=== PATIENT | female | born 1945 | race Caucasian/White ===

== ENCOUNTER 2016-09-18 21:03 | Inpatient (IN) ==
[2016-09-18 21:32] LABS: Bilirubin,Urine Negative (Negative); Blood,Urine Small (Negative); Clarity,Urine Cloudy (Clear); Color,Urine Yellow (Yellow); Glucose,Urine (UA) Normal (Normal); Ketones,Urine Trace mg/dL (Negative); Leukocyte Esterase,Urine Moderate (Negative); Nitrite,Urine Positive (Negative); PH,Urine 5.5 pH Units (5.0-8.0); Protein,Urine 100 mg/dL (Neg-Trace); Urobilinogen,Urine Normal (Normal)
[2016-09-18 21:39] LABS: Bacteria,Urine Many per hpf (None-Few); Squamous Epithelial Cell,Urine Moderate per lpf (None-Few)
--- NOTE | 2016-09-18 21:39 | Emergency Department Note ---
Disposition Clinical Impression: Weakness UTI (urinary tract infection) Qualifiers: Urinary tract infection type: acute cystitis Hematuria presence: without hematuria Qualified Code(s): N30.00 - Acute cystitis without hematuria Altered mental status Qualifiers: Altered mental status type: transient alteration of awareness Qualified Code(s) : R40.4 - Transient alteration of awareness Abdominal pain Qualifiers: Abdominal location: generalized Qualified Code(s): R10.84 - Generalized abdominal pain Fever Qualifiers: Fever type: unspecified Qualified Code(s): R50.9 - Fever, unspecified Anemia Qualifiers: Anemia type: unspecified type Qualified Code(s): D64.9 - Anemia, unspecified Disposition: Admitted As Inpatient Condition: Fair Referrals: NO,PCP [Non-Partnered Physician] - Forms: Work/School Release, ED Satisfaction Letter Abdominal Pain HPI - General Chief Complaint: ED Abdominal Pain Stated Complaint: ABD PAIN Time Seen by Provider: 09/18/16 21:33 Source: patient, family Mode of arrival: private vehicle Limitations: no limitations Nursing Notes Reviewed: Yes Vital Signs Reviewed: Yes - History of Present Illness HPI Narrative: Patient has come to [place] to visit family from [facility]. [place] [facility] but she started complaining of more abdominal pain after 4 this afternoon and seemed like she was a little confused. Pain is described as diffuse and she cannot really describe it. She relates she has had a stomachache intermittently for 2-3 weeks. She thinks some of this could be related to breaking off her insulin needles in her lower abdomen. She does report some nausea without vomiting. She denies diarrhea, constipation or urinary trouble. She denies any weakness but did feel dizzy tonight. She denies fevers but felt warm and had some chills. She denies diaphoresis. She denies that she has had any ill exposures or food borne illness concerns. She denies any recent antibiotics. She has had a chronic backache which she is having at this time. She relates she has had 4 back surgeries with 3 of them in the last year. She also has had 2 years of recurrent anemia with recurrent transfusions. Her had stated that she is having some similar complaints and confusion when her hemoglobin has been low. No cause has been found for her anemia upon multiple testing by her family doctor. He said that at one point this evening the patient was talking to her who was not there at the time. Patient is now able to express that she was doing that and is laughing about it. Pt Subjective Complaint: abdominal pain Onset (ago): week(s) (3) Consistency: intermittent Location: diffuse Pain Severity: moderate Pain Scale: 7 Quality: cannot describe Radiation: none Migration to: no migration Improves with: nothing Worsens with: nothing Context: history of similar episodes Associated symptoms: Reports: nausea, chills. Denies: vomiting, diarrhea, fever , constipation, dysuria, hematemesis, hematochezia, melena, hematuria, anorexia , syncope Treatments prior to arrival: none - Related Data Home Medications Medication Instructions Recorded Confirmed Metformin [Glucophage] 1,000 mg PO BIDWM 09/18/16 09/18/16 Allergies Allergy/AdvReac Type Severity Reaction Status Date / Time acetaminophen [From Percocet] AdvReac Agitated Verified 09/18/16 21:05 Oxycodone [From Percocet] AdvReac Agitated Verified 09/18/16 21:05 All systems ED: reviewed and negative except as stated. Abdominal Pain PMH - Past Medical History Medical history: Reports: arthritis, COPD, coronary artery disease, diabetes, GERD, hyperlipidemia, hypertension, kidney stones, peripheral artery disease, other (Recurrent anemia and transfusions) Female Surgical History: Reports: cholecystectomy Psychiatric history: Reports: no psych history - Social History Smoking status: Former smoker Alcohol use: Reports: none Drug use: Reports: none Physical Exam - General Limitations: no limitations General appearance: alert, in no apparent distress - Head Head exam: atraumatic, normocephalic, normal inspection - Eye Eye exam: Present: normal appearance, PERRL, EOMI. Absent: scleral icterus, conjunctival injection - ENT ENT exam: normal exam, normal oropharynx, mucous membranes moist - Neck Neck exam: Present: normal inspection, full ROM, trachea midline - Chest Chest inspection: Present: normal inspection, symmetric chest wall rise - Respiratory Respiratory exam: Present: normal lung sounds bilaterally. Absent: respiratory distress, wheezes, prolonged expiratory phase - Cardiovascular Cardiovascular exam: Present: regular rate, normal rhythm, tachycardia, normal heart sounds - Abdominal Exam Abdominal exam: Present: soft, tenderness (Mild diffuse in the midabdomen.), normal bowel sounds, other (No erythema or bruising to the abdominal wall.). Absent: distention, guarding, rebound, rigidity, psoas sign, obturator sign, Curry's sign, tenderness at McBurney's Point - Extremities Exam Extremities exam: Present: normal inspection, full ROM, normal capillary refill. Absent: tenderness, pedal edema - Expanded Lower Extremity Exam Neurovascular/Tendon exam: Present: normal capillary refill. Absent: motor deficit, sensory deficit, tendon deficit Gait: not tested/not observed - Back Exam Back exam: Present: normal inspection, full ROM. Absent: tenderness, CVA tenderness (R), CVA tenderness (L) - Neurological Exam Neurological exam: Present: alert, oriented X3, normal gait. Absent: motor sensory deficit - Psychiatric Psychiatric exam: Present: normal affect, normal mood - Skin Skin exam: Present: warm, dry, intact, normal color. Absent: diaphoresis, pallor Course Course Narrative: 2218: Has been discussed with the patient's, family and Dr. Rivera. She is coordinated continue with inpatient hydration, transfusion of packed red cells, IV antibiotics and clinical observation of her course. At this time she is tachycardic, febrile, weak, dizzy and not a candidate for discharge. Vital Signs Temperature 98.8 F 09/18/16 21:10 Pulse Rate 111 09/18/16 21:10 Respiratory Rate 24 09/18/16 21:10 Blood Pressure 167/68 09/18/16 21:10 O2 Sat by Pulse Oximetry 93 09/18/16 21:10 Temperature 101 F H 09/18/16 22:34 Pulse Rate 106 09/18/16 22:34 Respiratory Rate 16 09/18/16 22:34 Blood Pressure 165/64 09/18/16 22:34 O2 Sat by Pulse Oximetry 93 09/18/16 22:34 Oxygen Delivery Oxygen Delivery Room Air Abdominal Pain - Differential Diagnosis Differential Diagnosis: Likely: abdominal pain non-specific, constipation, diverticulitis, pancreatitis, other (Urinary tract infection) - Lab Data Lab results reviewed: Yes I reviewed the patient's lab results. Result diagrams: 09/18/16 22:00 09/18/16 22:00 Lab Results 09/18/16 09/18/16 09/18/16 Range/Units 21:28 22:00 22:00 WBC 5.0 (4.3-11.1) K/mcL RBC 2.47 L (3.82-4.97) M/mcL Hgb 7.0 L (11.5-15.4) g/dL Hct 22.6 L (35.3-44.9) % MCV 91.5 (83.0-100.0) fL MCH 28.3 (28.0-33.3) pg MCHC 31.0 L (31.6-35.5) g/dL RDW 16.8 H (11.5-14.5) % Plt Count 99 L (140-400) K/mcL MPV 10.8 (9.4-12.4) fL Immature Gran % 0.4 (0-4) % Seg Neutrophils % 83.0 % Lymphocytes % 8.7 % Monocytes % 7.5 % Eosinophils % 0.2 % Basophils % 0.2 % Neutrophils # 4.1 (1.6-8.9) K/mcL Lymphocytes # 0.4 L (0.6-4.6) K/mcL Monocytes # 0.4 (0.0-1.3) K/mcL Eosinophils # 0.0 (0.0-0.6) K/mcL Basophils # 0.0 (0.0-0.2) K/mcL Sodium 137 (136-145) mEq/L Potassium 4.1 (3.5-4.5) mEq/L Chloride 102 (98-109) mEq/L Carbon Dioxide 19 (19-29) mEq/L BUN 14 (7-20) mg/dL Creatinine 1.21 H (0.57-1.11) mg/dL Est GFR ( Amer) 53 L (> 60) Est GFR (Non-Af Amer) 44 L (> 60) BUN/Creatinine Ratio 12 (6-26) Glucose 236 H (70-99) mg/dL Calculated Osmolality 292 (280-300) Calcium 9.0 (8.6-10.8) mg/dL Urine Color Yellow (Yellow) Urine Clarity Cloudy A (Clear) Urine pH 5.5 (5.0-8.0) pH Units Ur Specific Le[place] 1.020 (1.010-1.025) Urine Protein 100 H (Neg-Trace) mg/dL Urine Glucose (UA) Normal (Normal) mg/dL Urine Ketones Trace H (Negative) mg/dL Urine Blood Small H (Negative) Urine Nitrite Positive A (Negative) Urine Bilirubin Negative (Negative) Urine Urobilinogen Normal (Normal) mg/dL Ur Leukocyte Esterase Moderate H (Negative) Urine Microscopic RBC 3-5 H (0-3) per hpf Urine Microscopic WBC TNTC H (0-3) per hpf Ur Squamous Epith Cells Moderate H (None-Few) per lpf Urine Bacteria Many H (None-Few) per hpf Urine Mucus Few (Few) Ur Culture Indicated? YES A (NO) - Radiology Data Radiology results reviewed: Yes I reviewed the patient's radiology results. Impressions Abdomen/Pelvis CT 09/18/16 21:40 IMPRESSION: 1. Study is slightly limited without the use of IV contrast for evaluation of intra-abdominal organs. 2. No acute findings within the abdomen or pelvis. 3. Sigmoid diverticulosis without evidence of diverticulitis. 4. Punctate nonobstructing right renal stone. Otherwise no hydronephrosis. 5. Evidence of cirrhosis with mild splenomegaly. D/ / 09/18/2016 22:22:46 Raghav Evans MD / corey Interpreting Provider: Raghav Evans MD
[2016-09-18 21:42] LABS: Mucus,Urine Few (Few); WBC,Urine TNTC per hpf (0-3)
[2016-09-18] MEDS ORDERED: Ondansetron ODT 4 MG TAB.RAPDIS SL ONE (22:10)
[2016-09-18 22:11] LABS: Basophils % 0.2 %; Eosinophils % 0.2 %; Hematocrit 22.6 % (35.3-44.9); Immature Granulocytes % 0.4 % (0-4); Lymphocytes # 0.4 K/mcL (0.6-4.6); Lymphocytes % 8.7 %; Mean Corpuscular Hemoglobin 28.3 pg (28.0-33.3); Mean Corpuscular Volume 91.5 fL (83.0-100.0); Mean Platelet Volume 10.8 fL (9.4-12.4); Monocytes # 0.4 K/mcL (0.0-1.3); Monocytes % 7.5 %; Neutrophils # 4.1 K/mcL (1.6-8.9); Red Blood Count 2.47 M/mcL (3.82-4.97); Red Cell Distribution Width 16.8 % (11.5-14.5)
[2016-09-18] MEDS ORDERED: CefTRIAXone 1,000 MG in D5% in Water (Mini-Bag+) 100 ML IVPB ONE (22:14)
[2016-09-18] MEDS ORDERED: 0.9 % Sodium Chloride 1,000 ML IVC ONE (22:14)
[2016-09-18 22:17] LABS: Platelet Count 99 K/mcL (140-400)
[2016-09-18] MEDS ORDERED: *HR* HYDROcodone/Acet 5/325 mg TABLET PO ONE (22:18)
[2016-09-18 22:29] LABS: Potassium 4.1 mEq/L (3.5-4.5)
[2016-09-18 22:48] LABS: Albumin 3.7 g/dL (3.5-5.0); Albumin/Globulin Ratio 0.9 (1.1-2.2); Bilirubin,Direct 0.7 mg/dL (0.0-0.5); Bilirubin,Indirect 0.8 mg/dL (0.0-1.2); Bilirubin,Total 1.5 mg/dL (0.2-1.2); Globulin 4.1 g/dL (2.4-3.5); Total Protein 7.8 g/dL (6.0-8.3)
[2016-09-18] MEDS ORDERED: Ondansetron 4 MG/2 ML VIAL IVP PRN (23:19)
[2016-09-18] MEDS ORDERED: MOM Conc 10 ML UD.LIQ PO PRN (23:19)
[2016-09-18] MEDS ORDERED: *HR* Dextrose 50 % in Water (Syg) 50 ML SYRINGE IVP PRN (23:19)
[2016-09-18] MEDS ORDERED: D5% in Water 1,000 ML IVC PRN (23:19)
[2016-09-18] MEDS ORDERED: Naloxone 0.4 MG/ML INJ IVP PRN (23:19)
[2016-09-18] MEDS ORDERED: Dextrose Gel 15 GM PO PRN ×2 (23:19)
[2016-09-18] MEDS: 0.9 % Sodium Chloride 1,000 ML IVC SCH (23:56)
[2016-09-19] MEDS: *HR* HYDROcodone/Acet 5/325 mg TABLET PO PRN ×2 (04:21→14:04)
[2016-09-19] MEDS: Acetaminophen 325 MG TABLET PO PRN ×2 (04:21→12:23)
[2016-09-19] MEDS ORDERED: Pantoprazole 40 MG VIAL IVP SCH (06:30)
[2016-09-19] MEDS: *HR* Metformin 500 MG TABLET PO SCH ×2 (08:10→16:48)
[2016-09-19] MEDS: Insulin LISPRO 300 UNITS/3 ML VIAL SQ SCH ×4 (08:11→19:39)
[2016-09-19] MEDS ORDERED: 0.9 % Sodium Chloride 250 ML ONE (10:34)
--- NOTE | 2016-09-19 12:22 | Internal Med History&Physical ---
Date of Encounter: 09/19/16 Time of Encounter: 11:45 Assessment and Plan (1) Abdominal pain Current visit: Yes Status: Acute Etiology not obvious. Suspect due in part to UTI. CT of abdomen/pelvis generally unremarkable. She has been started on Rocephin for UTI. Qualifiers: Abdominal location: generalized Qualified Code(s): R10.84 - Generalized abdominal pain (2) UTI (urinary tract infection) Current visit: Yes Status: Acute She has been started on Rocephin empirically. Will add lactobacillus. Qualifiers: Urinary tract infection type: acute cystitis Hematuria presence: without hematuria Qualified Code(s): N30.00 - Acute cystitis without hematuria (3) Azotemia Current visit: Yes Status: Acute Duration unknown. Will continue IV fluids and recheck labs in a.m. (4) Thrombocytopenia Current visit: Yes Status: Acute Duration unknown. Possibly related to cirrhosis. We will monitor platelet count. (5) Neutrophilia Current visit: Yes Status: Acute Possibly secondary to UTI. Continue Rocephin and monitor labs. (6) Anemia Current visit: Yes Status: Acute We will order anemia testing in a.m. Blood transfusion was ordered through the emergency room. Qualifiers: Anemia type: unspecified type Qualified Code(s): D64.9 - Anemia, unspecified (7) DM type 2 (diabetes mellitus, type 2) Current visit: Yes Status: Chronic We will check hemoglobin A1c in a.m. Continue Glucophage and Accu-Cheks with SSI. Qualifiers: Diabetes mellitus complication status: with unspecified complications Diabetes mellitus fdc insulin use: with fdc use Qualified Code(s) : E11.8 - Type 2 diabetes mellitus with unspecified complications; Z79.4 - senior care (current) use of insulin Internal Medicine - H&P: HPI Chief complaint: Abdominal pain, UTI, anemia Admitted From: Home Plans for Post Hospital Care: Home History of present illness: Ms. Thayer is a 70 year old female who came to emergency room after developing sudden onset of abdominal pain earlier in the day. She describes the pain as a sharp discomfort in her bilateral lower abdominal region. She rates it at level 10/10 at time of onset. She had nausea but no vomiting. She reports no change in her bowel movements. She did not take medication for treatment at home. When the pain did not resolve after a few hours she came to emergency room and was evaluated. She was found to have anemia with evidence of UTI and azotemia. She was admitted to [facility] floor for ongoing care needs. She states she was hospitalized at [facility] approximately 1 month ago with similar pain. She reports an EGD and colonoscopy were done with diverticular disease found but no other acute pathology. She states stool was heme negative at that time. Her GI history is pertinent for cholecystectomy in the past. She denies knowledge of cirrhosis seen on abdominal/ pelvic CT scan done through emergency room yesterday. She reports she has had anemia requiring 4 units of blood during that hospitalization. The etiology of her anemia has not been determined with certainty. She denies known internal malignancies. Past Med Surg Social Fam HX - Past Medical History Medical history: arthritis, COPD, coronary artery disease, diabetes, GERD, hyperlipidemia, hypertension, kidney stones, peripheral artery disease, other Psychiatric history: no psych history - Social History Smoking Status: Former smoker Smokeless Tobacco Status: No Alcohol use: none Drug use: none - Family History Mother Living Status: Internal Medicine - H&P: Meds Metformin [Glucophage] 1,000 mg PO BIDWM 09/18/16 [History] Allergies acetaminophen [From Percocet] Adverse Reaction (Verified 09/18/16 21:05) Agitated Oxycodone [From Percocet] Adverse Reaction (Verified 09/18/16 21:05) Agitated All Systems PM: A 10-system review of systems was performed and is negative for pertinent findings except as documented above in the HPI. Review of systems: Gen.: She states her weight has been stable the past few months Cardiovascular: She denies hypertension but reports she has ASHD with a single stent placed approximately February 2016. She denies TN heart failure DVT or pulmonary embolus Respiratory: She smoked from age [age] up to 2 packs per day. She has been told she has emphysema. She does not wear home oxygen. GI: As per history of present illness. : She denies hematuria dysuria or kidney stones. She denies chronic kidney disease and was unaware she had elevated creatinine in the emergency room. Neurologic: She denies large distribution strokes or seizures. Endocrine: She was diagnosed with DM 2 approximately 10 years ago. She has no known hyperlipidemia or thyroid disease. Hematology/oncology: As per history of present illness Psychiatric: She denies anxiety depression or other mental health issues Musk skeletal: She reports kyphoplasty procedures done April 2016, May 2016, and July 2016. She had a previous back surgical intervention as well. She denies gout or significant DJD or other bone joint or muscle disorders. - Constitutional Vitals: Temp Pulse Resp BP Pulse Ox 99.1 F 100 17 112/71 92 09/19/16 11:32 09/19/16 11:32 09/19/16 11:32 09/19/16 11:32 09/19/16 11:36 Exam: Gen.: She is a well-developed well-nourished female who states she feels cold and having chills HEENT: Head is atraumatic and normal cephalic. Eyes: EOMI. There is no scleral icterus. Mouth: Mucosa is moist. Neck: Supple and nontender. There is no thyromegaly or adenopathy noted. Heart: Regular without murmurs gallops or ectopics Lungs: No wheezes or crackles are heard. Abdomen: Soft and nontender. No masses or guarding are noted. Extremities: There is no cyanosis edema or clubbing noted. Dorsalis pedis and posterior tibial pulses are 1-2 over 2 bilaterally. Neurologic: Mental status: She is talkative and a good historian. Cranial nerves: Smile is symmetric. Forehead wrinkles bilaterally. Tongue protrudes midline. EOMI. Motor: She does not wish to move much but wants to stay wrapped up in blankets stating she is cold. No further neurologic testing is attempted. Skin: Warm and dry Internal Med - H&P Results - Labs CBC & Chem 7: 09/18/16 22:00 09/18/16 22:00 Labs: Cardiac Enzymes 09/19/16 Range/Units 06:53 Troponin I 0.02 (0-0.03) ng/mL
[2016-09-19] MEDS ORDERED: Ondansetron 4 MG/2 ML VIAL IVP PRN (12:42)
[2016-09-19] MEDS: 0.9 % Sodium Chloride 1,000 ML IVC SCH (15:37)
[2016-09-19] MEDS ORDERED: D5% in Water 1,000 ML IVC PRN (16:04)
[2016-09-19] MEDS: *HR* GlipiZIDE 5 MG TABLET PO SCH (16:48)
[2016-09-19] MEDS: Lactobacillus 1 EACH CAP.SPRINK PO SCH (19:54)
[2016-09-19] MEDS: Gabapentin 400 MG CAPSULE PO SCH (19:55)
[2016-09-19] MEDS: CefTRIAXone 1,000 MG in D5% in Water (Mini-Bag+) 100 ML IVPB SCH (22:19)
[2016-09-20] MEDS: 0.9 % Sodium Chloride 1,000 ML IVC SCH ×2 (02:15→09:42)
[2016-09-20] MEDS: Levothyroxine 25 MCG TABLET PO SCH (06:22)
[2016-09-20 06:47] LABS: Basophils % 0.2 %; Hematocrit 21.6 % (35.3-44.9); Hemoglobin 6.8 g/dL (11.5-15.4); Immature Granulocytes % 0.2 % (0-4); Lymphocytes # 0.9 K/mcL (0.6-4.6); Lymphocytes % 22.2 %; Mean Corpuscular HGB Conc 31.5 g/dL (31.6-35.5); Mean Corpuscular Hemoglobin 28.6 pg (28.0-33.3); Mean Corpuscular Volume 90.8 fL (83.0-100.0); Mean Platelet Volume 11.1 fL (9.4-12.4); Monocytes # 0.5 K/mcL (0.0-1.3); Monocytes % 12.3 %; Nucleated Red Blood Cells 0.5 /100 WBC (0); Red Blood Count 2.38 M/mcL (3.82-4.97); Red Cell Distribution Width 17.2 % (11.5-14.5); Segmented Neutrophils % 65.1 %
[2016-09-20 06:49] LABS: Neutrophils # 2.7 K/mcL (1.6-8.9); Platelet Count 81 K/mcL (140-400)
[2016-09-20 06:51] LABS: INR 1.7; Prothrombin Time 18.4 Seconds (9.4-12.1)
[2016-09-20 07:05] LABS: Albumin 3.2 g/dL (3.5-5.0); Albumin/Globulin Ratio 0.9 (1.1-2.2); Bilirubin,Total 0.9 mg/dL (0.2-1.2); Calcium 8.1 mg/dL (8.6-10.8); Globulin 3.6 g/dL (2.4-3.5); Magnesium 1.6 mg/dL (1.6-2.6); Potassium 3.8 mEq/L (3.5-4.5); Total Protein 6.8 g/dL (6.0-8.3); Uric Acid 8.7 mg/dL (2.6-6.0)
[2016-09-20 07:24] LABS: Thyroid Stimulating Hormone 2.658 mcIU/mL (0.350-4.840)
[2016-09-20 08:37] LABS: Hemoglobin A1C 5.4 %
[2016-09-20] MEDS: Acetaminophen 325 MG TABLET PO PRN (09:39)
[2016-09-20] MEDS: *HR* GlipiZIDE 5 MG TABLET PO SCH ×2 (09:41→18:25)
[2016-09-20] MEDS: Lactobacillus 1 EACH CAP.SPRINK PO SCH ×2 (09:41→21:17)
[2016-09-20] MEDS: *HR* Metformin 500 MG TABLET PO SCH ×2 (09:41→18:24)
[2016-09-20] MEDS: *HR* SitaGLIPtin 25 MG TABLET PO SCH (09:41)
[2016-09-20] MEDS: Gabapentin 400 MG CAPSULE PO SCH ×3 (09:41→21:17)
[2016-09-20] MEDS: Insulin LISPRO 300 UNITS/3 ML VIAL SQ SCH ×4 (09:42→21:17)
--- NOTE | 2016-09-20 10:30 | Internal Med Progress Note ---
Date of Encounter: 09/20/16 Time of Encounter: 10:20 - Assessment and plan (1) Abdominal pain Current Visit: Yes Status: Acute Assessment and plan: September 20. Resolved. Continue present management Qualifiers: Abdominal location: generalized Qualified Code(s): R10.84 - Generalized abdominal pain (2) UTI (urinary tract infection) Current Visit: Yes Status: Acute Assessment and plan: September 20. Preliminary culture report shows gram-negative rods. We will continue Rocephin and add IV Levaquin pending final culture report. Qualifiers: Urinary tract infection type: acute cystitis Hematuria presence: without hematuria Qualified Code(s): N30.00 - Acute cystitis without hematuria (3) Azotemia Current Visit: Yes Status: Acute Assessment and plan: September 20. Creatinine slightly improved to 1.13 with estimated GFR 47. Continue present management. (4) Thrombocytopenia Current Visit: Yes Status: Acute Assessment and plan: September 20. Platelet count decreased slightly to 81,000. Continue to monitor. (5) Neutrophilia Current Visit: Yes Status: Acute Assessment and plan: September 20. Resolved. We will continue Rocephin and start Levaquin as per above. (6) Anemia Current Visit: Yes Status: Acute Assessment and plan: September 20. Hemoglobin has decreased to 6.8 despite transfusion yesterday. Will give additional transfusions today. Discussed with her the need for additional workup such as nuclear medicine bleeding study and/or capsule endoscopy. Qualifiers: Anemia type: unspecified type Qualified Code(s): D64.9 - Anemia, unspecified (7) DM type 2 (diabetes mellitus, type 2) Current Visit: Yes Status: Chronic Assessment and plan: September 20. Hemoglobin A1c satisfactory at 5.4%. Continue Glucophage and Accu- Cheks with SSI. Qualifiers: Diabetes mellitus complication status: with unspecified complications Diabetes mellitus practice representative insulin use: with fci use Qualified Code(s) : E11.8 - Type 2 diabetes mellitus with unspecified complications; Z79.4 - USP (current) use of insulin (8) Hyperuricemia Current Visit: Yes Status: Acute Assessment and plan: September 20. Uric acid level returned elevated at 8.7. We will start allopurinol. - Subjective Interval history: September 20. She has no new complaints. She states her abdominal pain and nausea have resolved. - Constitutional Vitals: Temp Pulse Resp BP Pulse Ox 100.7 F H 98 18 117/64 92 09/20/16 07:04 09/20/16 07:04 09/20/16 07:04 09/20/16 07:04 09/20/16 07:04 Exam: She is sitting on the side of the bed resting comfortably. She appears in no acute distress. Her affect is bright and cheerful. I reviewed her medications and lab results with her. Internal Medicine: Result - Labs CBC & Chem 7: 09/20/16 06:39 09/20/16 06:39 Labs: Short CBC 09/20/16 Range/Units 06:39 WBC 4.1 L (4.3-11.1) K/mcL Hgb 6.8 L (11.5-15.4) g/dL Hct 21.6 L (35.3-44.9) % Plt Count 81 L (140-400) K/mcL Neutrophils # 2.7 (1.6-8.9) K/mcL BMP 09/20/16 06:39 Sodium 136 Potassium 3.8 Chloride 104 Carbon Dioxide 20 BUN 14 Creatinine 1.13 H Glucose 128 H Calcium 8.1 L Liver Function 09/20/16 Range/Units 06:39 Total Bilirubin 0.9 (0.2-1.2) mg/dL AST 34 (5-34) Units/L ALT 28 (0-55) Units/L Alkaline Phosphatase 83 (38-126) Units/L Albumin 3.2 L (3.5-5.0) g/dL - ABG Interpretation ABG results: PT/INR, D-dimer PT 18.4 Seconds (9.4-12.1) H 09/20/16 06:39 - VTE Documentation of Mechanical Device: Graduated compression elastic hosiery Consult Discharge Plan - Plan Referrals: Jose Elias Chatterjee [Primary Care Provider] - 1 week
[2016-09-20 11:03] LABS: Folate 17.3 ng/mL (7.0-31.4)
[2016-09-20] MEDS: Levofloxacin 500 MG/100 ML 500 MG/100 ML BAG IVPB SCH (12:07)
[2016-09-20] MEDS: 0.45 % Sodium Chloride w/KCl 20 MEQ/1,000 ML MLS IVC SCH (12:16)
[2016-09-20] MEDS ORDERED: 0.9 % Sodium Chloride 250 ML ONE (13:07)
[2016-09-20] MEDS: *HR* HYDROcodone/Acet 5/325 mg TABLET PO PRN (18:27)
[2016-09-20] MEDS: CefTRIAXone 1,000 MG in D5% in Water (Mini-Bag+) 100 ML IVPB SCH (23:34)
[2016-09-21] MEDS: Acetaminophen 325 MG TABLET PO PRN (02:03)
[2016-09-21] MEDS: *HR* HYDROcodone/Acet 5/325 mg TABLET PO PRN ×2 (02:03→08:09)
[2016-09-21] MEDS: Levothyroxine 25 MCG TABLET PO SCH (05:57)
[2016-09-21 06:29] VITALS: BP 117/63
[2016-09-21 07:01] LABS: Basophils % 0.2 %; Eosinophils % 0.8 %; Hemoglobin 8.4 g/dL (11.5-15.4); Immature Granulocytes % 0.6 % (0-4); Lymphocytes % 19.3 %; Mean Corpuscular HGB Conc 32.3 g/dL (31.6-35.5); Mean Corpuscular Hemoglobin 29.2 pg (28.0-33.3); Mean Corpuscular Volume 90.3 fL (83.0-100.0); Monocytes # 0.6 K/mcL (0.0-1.3); Monocytes % 12.3 %; Neutrophils # 3.4 K/mcL (1.6-8.9); Red Blood Count 2.88 M/mcL (3.82-4.97); Red Cell Distribution Width 16.9 % (11.5-14.5); Segmented Neutrophils % 66.8 %
[2016-09-21 07:16] LABS: Alanine Aminotransferase 28 Units/L (0-55); Albumin/Globulin Ratio 0.8 (1.1-2.2); Alkaline Phosphatase 86 Units/L (38-126); Aspartate Amino Transferase 31 Units/L (5-34); BUN/Creatinine Ratio 16 (6-26); Bilirubin,Total 1.6 mg/dL (0.2-1.2); Blood Urea Nitrogen 17 mg/dL (7-20); Calcium 8.2 mg/dL (8.6-10.8); Carbon Dioxide 19 mEq/L (19-29); Chloride 104 mEq/L (98-109); Globulin 3.9 g/dL (2.4-3.5); Glucose 157 mg/dL (70-99); Osmolality,Calculated 287 (280-300); Potassium 4.1 mEq/L (3.5-4.5); Sodium 136 mEq/L (136-145); Total Protein 6.9 g/dL (6.0-8.3); eGFR For African Americans > 60 (> 60); eGFR For Non-African Americans 50 (> 60)
[2016-09-21 07:19] LABS: Platelet Count 82 K/mcL (140-400)
[2016-09-21] MEDS: 0.45 % Sodium Chloride w/KCl 20 MEQ/1,000 ML MLS IVC SCH (07:49)
[2016-09-21] MEDS: Levofloxacin 500 MG/100 ML 500 MG/100 ML BAG IVPB SCH (08:02)
[2016-09-21] MEDS: Lactobacillus 1 EACH CAP.SPRINK PO SCH (08:08)
[2016-09-21] MEDS: *HR* SitaGLIPtin 25 MG TABLET PO SCH (08:08)
[2016-09-21] MEDS: Gabapentin 400 MG CAPSULE PO SCH (08:08)
[2016-09-21] MEDS: *HR* GlipiZIDE 5 MG TABLET PO SCH (08:08)
[2016-09-21] MEDS: *HR* Metformin 500 MG TABLET PO SCH (08:08)
[2016-09-21] MEDS: Insulin LISPRO 300 UNITS/3 ML VIAL SQ SCH (08:09)
[2016-09-21 08:50] LABS: Platelet Estimate Decreased (Normal)
--- NOTE | 2016-09-21 09:43 | Discharge Summary ---
Date of Encounter: 09/21/16 Time of Encounter: 09:30 - Discharge Diagnosis (1) Abdominal pain Priority: Primary Status: Resolved Qualifiers: Abdominal location: generalized Qualified Code(s): R10.84 - Generalized abdominal pain (2) UTI (urinary tract infection) Priority: Secondary Status: Acute Qualifiers: Urinary tract infection type: acute cystitis Hematuria presence: without hematuria Qualified Code(s): N30.00 - Acute cystitis without hematuria (3) Azotemia Priority: Secondary Status: Acute (4) Thrombocytopenia Priority: Secondary Status: Acute (5) Neutrophilia Priority: Secondary Status: Resolved (6) Anemia Priority: Secondary Status: Acute Qualifiers: Anemia type: unspecified type Qualified Code(s): D64.9 - Anemia, unspecified (7) DM type 2 (diabetes mellitus, type 2) Priority: Secondary Status: Chronic Qualifiers: Diabetes mellitus complication status: with unspecified complications Diabetes mellitus mcc insulin use: with ferry terminal agent use Qualified Code(s) : E11.8 - Type 2 diabetes mellitus with unspecified complications; Z79.4 - retirement (current) use of insulin (8) Hyperuricemia Priority: Secondary Status: Acute - Discharge Medications Prescriptions: Allopurinol [Zyloprim 100 MG] 200 mg PO DAILY #60 tablet Ascorbic Acid [Vitamin C] 500 mg PO DAILY #30 tablet.er Ferrous Sulfate 325 mg PO DAILY #30 tablet Lactobacillus [Culturelle] 1 each PO BID #10 cap.sprink Levofloxacin [Levaquin] 500 mg PO DAILY #5 tablet Home Medications: Metformin [Glucophage] 1,000 mg PO BIDWM 09/18/16 [History] Gabapentin [Neurontin] 400 mg PO TID 09/19/16 [History] GlipiZIDE [Glucotrol] 10 mg PO BIDWM 09/19/16 [History] HYDROcodone/Acet 5/325 mg [[place] 5-325 mg] 1 tab PO Q6H PRN 09/19/16 [History] Hydroxyzine HCl 10 mg PO BID 09/19/16 [History] Insulin NPH Hum/Reg Insulin Hm [Novolin 70-30 100 Unit/ml Vial] 40 unit SQ QDPC 09/19/16 [History] Levothyroxine [Synthroid] 25 mcg PO 0630 09/19/16 [History] Omeprazole [PriLOSEC] 40 mg PO DAILY 09/19/16 [History] Polyethylene Glycol 3350 17 gm PO QDPC 09/19/16 [History] Pravastatin Sodium [Pravachol] 20 mg PO QDPC 09/19/16 [History] SitaGLIPtin [Januvia] 100 mg PO DAILY 09/19/16 [History] Allopurinol [Zyloprim 100 MG] 200 mg PO DAILY #60 tablet 09/21/16 [Rx] Ascorbic Acid [Vitamin C] 500 mg PO DAILY #30 tablet.er 09/21/16 [Rx] Ferrous Sulfate 325 mg PO DAILY #30 tablet 09/21/16 [Rx] Lactobacillus [Culturelle] 1 each PO BID #10 cap.sprink 09/21/16 [Rx] Levofloxacin [Levaquin] 500 mg PO DAILY #5 tablet 09/21/16 [Rx] Allergies/Adverse Reactions: Allergies acetaminophen [From Percocet] Adverse Reaction (Verified 09/18/16 21:05) Agitated Oxycodone [From Percocet] Adverse Reaction (Verified 09/18/16 21:05) Agitated Date of admission: 09/20/16 14:38 Primary care physician: Jose Elias Chatterjee - Patient Status Disposition: Home, Self-Care Condition: Fair Overall status at discharge: patient is progressing back to baseline - Discharge Instructions Follow Up With: Jose Elias Chatterjee [Primary Care Provider] - 1 week - Diet and Activity Activity: resume usual activities as tolerated Diet: advance to your usual diet Hospital course: Ms. Thayer is a 70 year old female who came to emergency room after developing sudden onset of abdominal pain earlier in the day. She describes the pain as a sharp discomfort in her bilateral lower abdominal region. She rates it at level 10/10 at time of onset. She had nausea but no vomiting. She reports no change in her bowel movements. She did not take medication for treatment at home. When the pain did not resolve after a few hours she came to emergency room and was evaluated. She was found to have anemia with evidence of UTI and azotemia. She was admitted to [facility] floor for ongoing care needs. Initial orders were written by the emergency room physician. I saw her on September 19 and performed the history and physical. The etiology of her abdominal pain was not determined with certainty. Her pain resolved by the second hospital day. I felt it was likely due at least in part to UTI. Urine culture returned showing Escherichia coli. She was started empirically on Rocephin through emergency room and IV Levaquin was added on September 20. She will continue with oral Levaquin and probiotic for 5 additional days at discharge. Lisinopril was discontinued because of azotemia. She had improvement in her creatinine to 1.07 by day of discharge with estimated GFR rising to 50. She will remain off lisinopril after discharge. Her blood pressure was satisfactory. She received 4 units of packed red blood cells during her hospital stay. Anemia testing showed iron 13, transferrin saturation 3%, ferritin 75, B12 719, folate 17.3. She will be given ferrous sulfate with vitamin C at discharge. Uric acid level returned elevated at 8.7%. She was started on allopurinol 200 mg daily. On September 21 I felt she was stable for discharge home. Her hemoglobin had risen to 8.4 after receiving 2 units packed red blood cells on September 20. I encouraged her to follow with her PCP within one week and discuss further workup such as nuclear medicine bleeding scan and/or capsule endoscopy to further explore her blood loss anemia. - Time Spent with Patient Total time spent providing and/or coordinating discharge services: - Constitutional Vitals: Temp Pulse Resp BP Pulse Ox 98.2 F 83 20 117/63 90 09/21/16 06:24 09/21/16 06:24 09/21/16 06:24 09/21/16 06:24 09/21/16 06:24 - VTE Documentation of Mechanical Device: Graduated compression elastic hosiery
== END 2016-09-21 13:36 | disposition home or self-care (01) | DRG 690 ==
LOC: INPPIK 21:03 → EMEROOPIK 21:03 → INPPIK 23:02
PROVIDERS: ADMIT Internal Medicine; ATTEND Internal Medicine

== ENCOUNTER 2018-10-14 14:19 | Inpatient (IN) ==
--- NOTE | 2018-10-14 14:59 | Emergency Department Note ---
Disposition Clinical Impression: Weakness, Macular rash, Hyperglycemia Anemia Qualifiers: Anemia type: unspecified type Qualified Code(s): D64.9 - Anemia, unspecified Disposition: Admitted As Inpatient Condition: Fair Referrals: Jose Elias Chatterjee [Primary Care Provider] - Skin/Abscess/FB HPI Chief complaint: ED Skin/Abscess/Foreign Body Stated complaint: rash to bilateral lower legs Time Seen by Provider: 10/14/18 14:52 Source: patient Limitations: no limitations HPI Narrative: Patient relates she has had a diffuse rash on both legs for 3 days. This is occasionally binges little itchy but otherwise is not bothersome to her. She relates it started on the day that she went to see her baggage agent in [place] with regard to a chronic toe lesion. She was wearing her normal jeans and denies any other changes to medications including [id number]. She has a change detergents, foods, animal exposure, travel or insect bite. She is currently visiting [place] from [facility] and her family has brought her in because of the rash. She has no other area for rash or swelling. It is only on her legs. She has any shortness of breath or wheezing beyond her normal mild shortness of breath. She states that she has not been taking medications routinely for about a month because she is mainly been laying in bed. Her family states she does this when her hemoglobin gets low and her hemoglobin was checked on September 20 to be 8.0. She has required recurrent transfusions in the past and has had extensive evaluation without finding a cause for bleeding. They do not note that she has had any other hematologic abnormality such as leukopenia or thrombocytopenia. She currently states she feels well and is somewhat frustrated with being in the emergency department. Pt Subjective Complaint: rash Onset (ago): day(s) (3) Location: LLE, RLE Severity: mild Severity scale (1-10): 1 Quality: pruritic (Occasionally) Consistency: intermittent Improves with: none Worsens with: none Associated symptoms: Reports: denies other symptoms Treatments prior to arrival: none Home Medications Medication Instructions Recorded Confirmed metFORMIN [Glucophage] 1,000 mg PO BIDWM 09/18/16 09/18/16 Gabapentin [Neurontin] 400 mg PO TID 09/19/16 09/19/16 HYDROcodone/Acet 5/325 mg [[place] 1 tab PO Q6H PRN 09/19/16 09/19/16 5-325 mg] Insulin NPH Hum/Reg Insulin Hm 40 unit SQ QDPC 09/19/16 09/19/16 [Novolin 70-30 100 Unit/ml Vial] Levothyroxine [Synthroid] 25 mcg PO 0630 09/19/16 09/19/16 Omeprazole [PriLOSEC] 40 mg PO DAILY 09/19/16 09/19/16 Polyethylene Glycol 3350 17 gm PO QDPC 09/19/16 09/19/16 Pravastatin Sodium [Pravachol] 20 mg PO QDPC 09/19/16 09/19/16 SitaGLIPtin [Januvia] 100 mg PO DAILY 09/19/16 09/19/16 glipiZIDE [Glucotrol] 10 mg PO BIDWM 09/19/16 09/19/16 hydrOXYzine HCl [Hydroxyzine HCl] 10 mg PO BID 09/19/16 09/19/16 Previous Rx's Medication Instructions Recorded Allopurinol [Zyloprim 100 MG] 200 mg PO DAILY #60 tablet 09/21/16 Ascorbic Acid [Vitamin C] 500 mg PO DAILY #30 tablet.er 09/21/16 Ferrous Sulfate 325 mg PO DAILY #30 tablet 09/21/16 Lactobacillus [Culturelle] 1 each PO BID #10 cap.sprink 09/21/16 levoFLOXacin [Levaquin] 500 mg PO DAILY #5 tablet 09/21/16 Allergies Allergy/AdvReac Type Severity Reaction Status Date / Time acetaminophen [From Percocet] AdvReac Agitated Verified 09/18/16 21:05 oxycodone [From Percocet] AdvReac Agitated Verified 09/18/16 21:05 All systems ED: reviewed and negative except as stated. Past Medical History - Past Medical History Attestation: Yes The following information was validated with the patient. 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 Absent: scleral icterus, conjunctival injection - ENT ENT exam: normal exam, normal oropharynx, mucous membranes moist - Neck Neck exam: Present: normal inspection, full ROM, trachea midline. Absent: tende rness, lymphadenopathy - Chest Chest inspection: Present: normal inspection, symmetric chest wall rise - Respiratory Respiratory exam: Present: normal lung sounds bilaterally. Absent: respiratory distress, wheezes, prolonged expiratory phase - Cardiovascular Cardiovascular exam: Present: regular rate, normal rhythm, tachycardia, normal heart sounds - Abdominal Exam Abdominal exam: Present: soft, Non-Tender, normal bowel sounds. Absent: te nderness, distention, guarding, rebound, rigidity - Extremities Exam Extremities exam: Present: full ROM, normal capillary refill. Absent: tenderness, pedal edema, joint swelling, calf tenderness - Expanded Lower Extremity Exam Neurovascular/Tendon exam: Present: normal capillary refill Gait: observed and normal - Back Exam Back exam: Present: normal inspection, full ROM. Absent: tenderness - Neurological Exam Neurological exam: Present: alert, oriented X3 - Psychiatric Psychiatric exam: Present: normal affect, normal mood - Skin Skin exam: Present: warm, dry, intact, normal color, rash (Blanching maculopapular rash which is diffuse about bilateral lower extremities. She has not had any about her torso, upper extremities or head. She has not have blistering, bruising, cellulitic erythema or skin sloughing.) Course Course Narrative: Due to the patient's history of recurrent anemia and diabetes, CBC, basic chemistries, sedimentation rates, coagulation studies and LFTs are obtained. We will await the return of the studies to coordinate her disposition. 1530: Patient's hemoglobin is at 5.5. She is willing to stay for transfusion and an IV has been established and a type and cross performed. 1545: Care has been discussed with Dr. Rivera. The patient will start with 2 units of packed red blood cells with a recheck CBC in the morning. We are awaiting return of her chemistries to ensure there is no other metabolic derangement to require her transfer from this facility. Preliminary orders have been obtained from Dr. Rivera for her admission. 1550: Patient's glucose is 700 without evidence for DKA. She is written to receive an initial 15 units of Humulin R and continued IV fluids, packed red cells and subcutaneous insulin order set. She has the left great toe wound for which she is placed on wound care protocol. Dr. Rivera has been updated on the patient's final laboratory studies. Vital Signs Temperature 97.8 F 10/14/18 14:21 Pulse Rate 105 10/14/18 14:21 Respiratory Rate 18 10/14/18 14:21 Blood Pressure 151/59 10/14/18 14:21 O2 Sat by Pulse Oximetry 93 10/14/18 14:21 Temperature 97.8 F 10/14/18 14:21 Pulse Rate 105 10/14/18 14:21 Respiratory Rate 18 10/14/18 14:21 Blood Pressure 151/59 10/14/18 14:21 O2 Sat by Pulse Oximetry 93 10/14/18 14:21 Oxygen Delivery Oxygen Delivery Room Air Skin/Abscess/Foreign Body - Differential Diagnosis Likely: dermatophytosis, allergic reaction to drug, contact dermatitis. Unlikely: cellulitis - Lab Data Lab results reviewed: Yes I reviewed the patient's lab results. Result diagrams: 10/14/18 15:12 10/14/18 15:12 Lab Results 10/14/18 10/14/18 10/14/18 Range/Units 15:12 15:12 15:12 WBC 3.3 L (4.3-11.1) K/mcL RBC 2.48 L (3.82-4.97) M/mcL Hgb 5.5 L* (11.5-15.4) g/dL Hct 20.1 L (35.3-44.9) % MCV 81.0 L (83.0-100.0) fL MCH 22.2 L (28.0-33.3) pg MCHC 27.4 L (31.6-35.5) g/dL RDW 17.2 H (11.5-14.5) % Plt Count 195 (140-400) K/mcL MPV 11.5 (9.4-12.4) fL Immature Gran % 0.6 (0-4) % Seg Neutrophils % 78.1 % Lymphocytes % 13.4 % Monocytes % 6.1 % Eosinophils % 1.5 % Basophils % 0.3 % Neutrophils # 2.6 (1.6-8.9) K/mcL Lymphocytes # 0.4 L (0.6-4.6) K/mcL Monocytes # 0.2 (0.0-1.3) K/mcL Eosinophils # 0.1 (0.0-0.6) K/mcL Basophils # 0.0 (0.0-0.2) K/mcL Hypochromasia Present A (Not Present) Microcytosis Present A (Not Present) PT 16.8 H (9.4-12.1) Seconds INR 1.5 APTT 30.0 (26.0-36.0) Seconds Sodium 127 L (136-145) mEq/L Potassium 4.2 (3.5-5.1) mEq/L Chloride 94 L (98-107) mEq/L Carbon Dioxide 25 (23-29) mEq/L BUN 26 H (8-23) mg/dL Creatinine 1.08 (0.60-1.20) mg/dL Est GFR ( Amer) > 60 (> 60) Est GFR (Non-Af Amer) 50 L (> 60) BUN/Creatinine Ratio 24 (6-26) Glucose 700 H* (70-105) mg/dL Calculated Osmolality 302 H (280-300) Calcium 7.6 L (8.6-10.3) mg/dL Total Bilirubin 0.9 (0.3-1.0) mg/dL Direct Bilirubin 0.2 (0.0-0.2) mg/dL Indirect Bilirubin 0.7 (0.0-1.2) mg/dL AST 15 (13-39) Units/L ALT 13 (7-52) Units/L Alkaline Phosphatase 76 (34-104) Units/L Serum Total Protein 6.7 (6.4-8.9) g/dL Albumin 2.8 L (3.5-5.7) g/dL Globulin 3.9 H (2.4-3.5) g/dL Albumin/Globulin Ratio 0.7 L (1.1-2.2)
[2018-10-14 15:25] LABS: Basophils % 0.3 %; Eosinophils # 0.1 K/mcL (0.0-0.6); Eosinophils % 1.5 %; Hematocrit 20.1 % (35.3-44.9); Immature Granulocytes % 0.6 % (0-4); Lymphocytes # 0.4 K/mcL (0.6-4.6); Lymphocytes % 13.4 %; Mean Corpuscular HGB Conc 27.4 g/dL (31.6-35.5); Mean Corpuscular Hemoglobin 22.2 pg (28.0-33.3); Mean Platelet Volume 11.5 fL (9.4-12.4); Monocytes # 0.2 K/mcL (0.0-1.3); Monocytes % 6.1 %; Neutrophils # 2.6 K/mcL (1.6-8.9); Platelet Count 195 K/mcL (140-400); Red Blood Count 2.48 M/mcL (3.82-4.97); Red Cell Distribution Width 17.2 % (11.5-14.5); Segmented Neutrophils % 78.1 %
[2018-10-14 15:26] LABS: INR 1.5; Prothrombin Time 16.8 Seconds (9.4-12.1)
[2018-10-14 15:31] LABS: Hemoglobin 5.5 g/dL (11.5-15.4)
[2018-10-14 15:44] LABS: Hypochromasia Present (Not Present); Microcytosis Present (Not Present)
[2018-10-14] MEDS ORDERED: Insulin Regular, Human 100 UNIT/ML SQ ONE (15:51)
[2018-10-14 15:52] LABS: Alanine Aminotransferase 13 Units/L (7-52); Albumin 2.8 g/dL (3.5-5.7); Albumin/Globulin Ratio 0.7 (1.1-2.2); Alkaline Phosphatase 76 Units/L (34-104); Aspartate Amino Transferase 15 Units/L (13-39); BUN/Creatinine Ratio 24 (6-26); Bilirubin,Direct 0.2 mg/dL (0.0-0.2); Bilirubin,Indirect 0.7 mg/dL (0.0-1.2); Bilirubin,Total 0.9 mg/dL (0.3-1.0); Blood Urea Nitrogen 26 mg/dL (8-23); Calcium 7.6 mg/dL (8.6-10.3); Carbon Dioxide 25 mEq/L (23-29); Chloride 94 mEq/L (98-107); Globulin 3.9 g/dL (2.4-3.5); Glucose 700 mg/dL (70-105); Osmolality,Calculated 302 (280-300); Potassium 4.2 mEq/L (3.5-5.1); Sodium 127 mEq/L (136-145); Total Protein 6.7 g/dL (6.4-8.9); eGFR For Non-African Americans 50 (> 60)
[2018-10-14] MEDS ORDERED: *HR* Dextrose 50 % in Water (Syg) 50 ML SYRINGE IVP PRN (15:55)
[2018-10-14] MEDS ORDERED: Dextrose Gel 15 GM/37.5 ML TUBE PO PRN ×2 (15:55)
[2018-10-14] MEDS ORDERED: MOM Conc 10 ML UD.LIQ PO PRN (15:55)
[2018-10-14] MEDS ORDERED: D5% in Water 1,000 ML IVC PRN (15:55)
[2018-10-14] MEDS ORDERED: Acetaminophen 325 MG TABLET PO ONE (15:55)
[2018-10-14] MEDS ORDERED: Naloxone 0.4 MG/ML INJ IVP PRN (15:55)
[2018-10-14] MEDS ORDERED: Mag Hydrox/Al Hydrox/Simeth 30 ML UDC PO PRN (15:55)
[2018-10-14] MEDS: 0.9 % Sodium Chloride 1,000 ML IVC SCH (16:30)
[2018-10-14] MEDS: Insulin LISPRO 300 UNITS/3 ML VIAL SQ SCH ×2 (18:10→20:44)
[2018-10-14] MEDS ORDERED: 0.9 % Sodium Chloride 250 ML ONE ×2 (20:06→23:49)
[2018-10-14] MEDS ORDERED: Insulin LISPRO 300 UNITS/3 ML VIAL SQ SCH (21:00)
[2018-10-15 06:27] LABS: Basophils % 0.3 %; Eosinophils # 0.1 K/mcL (0.0-0.6); Eosinophils % 1.9 %; Hematocrit 24.4 % (35.3-44.9); Immature Granulocytes % 0.6 % (0-4); Lymphocytes # 0.6 K/mcL (0.6-4.6); Lymphocytes % 15.3 %; Mean Corpuscular HGB Conc 28.7 g/dL (31.6-35.5); Mean Corpuscular Hemoglobin 23.5 pg (28.0-33.3); Mean Corpuscular Volume 81.9 fL (83.0-100.0); Monocytes # 0.2 K/mcL (0.0-1.3); Neutrophils # 2.8 K/mcL (1.6-8.9); Platelet Count 166 K/mcL (140-400); Red Blood Count 2.98 M/mcL (3.82-4.97); Red Cell Distribution Width 16.9 % (11.5-14.5); Segmented Neutrophils % 76.9 %
[2018-10-15] MEDS: 0.9 % Sodium Chloride 1,000 ML IVC SCH (06:36)
[2018-10-15 06:58] LABS: BUN/Creatinine Ratio 28 (6-26); Blood Urea Nitrogen 24 mg/dL (8-23); Calcium 7.4 mg/dL (8.6-10.3); Carbon Dioxide 26 mEq/L (23-29); Chloride 98 mEq/L (98-107); Glucose 420 mg/dL (70-105); Osmolality,Calculated 296 (280-300); Potassium 3.9 mEq/L (3.5-5.1); Sodium 132 mEq/L (136-145); eGFR For Non-African Americans > 60 (> 60)
[2018-10-15 07:23] LABS: Anisocytosis 1+ (Not Present); Hypochromasia Present (Not Present)
[2018-10-15 07:24] LABS: Microcytosis Present (Not Present)
[2018-10-15] MEDS: Insulin LISPRO 300 UNITS/3 ML VIAL SQ SCH ×4 (07:48→20:05)
[2018-10-15] MEDS ORDERED: *HR* Dextrose 50 % in Water (Vial) 50 ML VIAL IVP PRN (10:15)
--- NOTE | 2018-10-15 12:58 | Internal Med History&Physical ---
Date of Encounter: 10/15/18 Time of Encounter: 12:00 Assessment and Plan (1) Rash Current visit: Yes Status: Acute Workup has been ordered for vasculitis. (2) Anemia Current visit: Yes Status: Acute Anemia workup will be done. She received 2 units packed red blood cells in emergency room. Continue to monitor CBC. Qualifiers: Anemia type: unspecified type Qualified Code(s): D64.9 - Anemia, unspecified (3) Azotemia Current visit: No Status: Acute BUN and creatinine were 26 and 1.0 respectively in emergency room with estimated GFR 50. Creatinine has improved today to 0.85 with estimated GFR greater than 60. Continue to monitor labs. (4) Hyperuricemia Current visit: No Status: Acute Check uric acid level in a.m. (5) DM type 2 (diabetes mellitus, type 2) Current visit: No Status: Chronic Hemoglobin A1c has been ordered. Continue Januvia and metformin. Continue Accu-Cheks with SSI. Qualifiers: Diabetes mellitus terminal operations manager insulin use: with shelter use Diabetes mellitus complication status: with unspecified complications Qualified Code(s): E11.8 - Type 2 diabetes mellitus with unspecified complications; Z79.4 - [facility] (current) use of insulin (6) Hypothyroidism Current visit: Yes Status: Chronic Check TSH. Qualifiers: Hypothyroidism type: unspecified Qualified Code(s): E03.9 - Hypothyroidism, unspecified Internal Medicine - H&P: HPI Chief complaint: Rash, anemia Admitted From: Emergency Dept Plans for Post Hospital Care: Home History of present illness: Ms. Thayer is a 72 year old female who came to emergency room after noting a "rash" develop on her legs approximately 10/11/2018. She denies involvement elsewhere on her body. When the rash seemed to be progressing she came to emergency room and was found to have significant anemia with hemoglobin 5.5. She was admitted to [facility] floor for IV blood transfusions and further workup. She denies previous similar episodes of rash. She states the rash is nonpruritic. She denies ingestion of any unusual medications. She has not had visible hematuria, cough, dyspnea, myalgias, or arthralgias. She was hospitalized at [facility] August 2016 with anemia. Workup then showed likely iron deficiency. She was prescribed ferrous sulfate with ascorbic acid at discharge but states she has not continued these medications. She denies melena or hematochezia. She reports EGD and colonoscopy were done approximately July 2016 for anemia. She was found to have diverticular disease of the colon but no other worrisome pathology. She has had cholecystectomy. She was found to have evidence of cirrhosis on abdominal/pelvic CT at her [facility] hospitalization August 2016. She denies history of alcohol use or known hepatitis. Past Med Surg Social Fam HX - Past Medical History Medical history: arthritis, cirrhosis, COPD, coronary artery disease, diabetes, GERD, hyperlipidemia, hypertension, kidney stones, peripheral artery disease Additional medical history: NEUROPATHY. CHRONIC BACK PAIN , ANEMIA BLOOD TRANSFUSION Psychiatric history: no psych history - Past Surgical History Surgical History: cholecystectomy, orthopedic, other Additional surgical history: BACK SURGERY KYPHOPLASTY - Social History Smoking Status: Former smoker Smokeless Tobacco Status: No Alcohol use: none Drug use: none - Family History Mother Living Status: Internal Medicine - H&P: Meds metFORMIN [Glucophage] 1,000 mg PO BIDWM 09/18/16 [History] Gabapentin [Neurontin] 400 mg PO TID 09/19/16 [History] HYDROcodone/Acet 5/325 mg [[place] 5-325 mg] 1 tab PO Q6H PRN 09/19/16 [History] Insulin NPH Hum/Reg Insulin Hm [Novolin 70-30 100 Unit/ml Vial] 0 unit SQ QDPC 09/19/16 [History] Levothyroxine [Synthroid] 25 mcg PO 0630 09/19/16 [History] Omeprazole [PriLOSEC] 40 mg PO DAILY 09/19/16 [History] Polyethylene Glycol 3350 17 gm PO QDPC 09/19/16 [History] Pravastatin Sodium [Pravachol] 20 mg PO QDPC 09/19/16 [History] SitaGLIPtin [Januvia] 100 mg PO DAILY 09/19/16 [History] glipiZIDE [Glucotrol] 10 mg PO BIDWM 09/19/16 [History] hydrOXYzine HCl [Hydroxyzine HCl] 10 mg PO BID 09/19/16 [History] Allopurinol [Zyloprim 100 MG] 200 mg PO DAILY #60 tablet 09/21/16 [Rx] Ascorbic Acid [Vitamin C] 500 mg PO DAILY #30 tablet.er 09/21/16 [Rx] Lactobacillus [Culturelle] 1 each PO BID #10 cap.sprink 09/21/16 [Rx] levoFLOXacin [Levaquin] 500 mg PO DAILY #5 tablet 09/21/16 [Rx] Aspirin [Adult Aspirin] 81 mg PO DAILY 10/14/18 [History] Ferrous Sulfate 65 mg PO DAILY 10/14/18 [History] Furosemide [Lasix] 40 mg PO DAILY 10/14/18 [History] Spironolactone [Aldactone] 25 mg PO DAILY 10/14/18 [History] Allergy/AdvReac Type Severity Reaction Status Date / Time acetaminophen [From Percocet] AdvReac Agitated Verified 09/18/16 21:05 oxycodone [From Percocet] AdvReac Agitated Verified 09/18/16 21:05 All Systems PM: A 10-system review of systems was performed and is negative for pertinent findings except as documented above in the HPI. Review of systems: Gen.: Her weight has decreased from 88.11 kg on 09/21/2016 to present weight of 60.039 kg. Cardiovascular: She denies hypertension but reports she has ASHD with a single stent placed approximately February 2016. She denies MN heart failure angina DVT or pulmonary embolus Respiratory: She smoked from age [age] up to 2 packs per day. She has been told she has emphysema. She was prescribed home oxygen at discharge from [facility] August 2016 but states she does not use it and it has been removed from her home. GI: As per history of present illness. : She denies hematuria dysuria or kidney stones. She had acute renal failure during her 2017 hospitalization which has resolved now. Neurologic: She denies large distribution strokes or seizures. Endocrine: She was diagnosed with DM 2 approximately 2006. She has hypothyroidism and takes Synthroid. She does not have known hyperlipidemia. Hematology/oncology: She has had anemia with workup as per history of present illness. She denies known internal malignancies. Psychiatric: She denies anxiety depression or other mental health issues Musk skeletal: She reports kyphoplasty procedures done April 2016, May 2016, and July 2016. She had a previous back surgical intervention as well. Uric acid level was elevated at 8.7 on 09/20/2016 labs. She denies gout or significant DJD or other bone joint or muscle disorders. - Constitutional Vitals: Temp Pulse Resp BP Pulse Ox 98.4 F 84 17 146/63 96 10/15/18 10:39 10/15/18 10:39 10/15/18 10:39 10/15/18 10:39 10/15/18 10:39 Exam: Gen.: She is a well-developed well-nourished female resting comfortably on the side of bed who appears in no acute distress HEENT: Head is atraumatic and normocephalic. Eyes: EOMI. There is no scleral icterus. Mouth: Mucosa is moist. Neck: Supple and nontender. There is no thyromegaly or adenopathy noted. Heart: Regular without murmurs gallops or ectopics Lungs: No wheezes or crackles are heard. Abdomen: The abdomen is nontender to palpation. There is questionable ascites present to percussion. No masses or guarding are noted. Extremities: Her arms are unremarkable. She has widespread slightly raised nonscaly erythematous lesions with confluence on her legs. Dorsalis pedis and posterior tibial pulses are trace to 1+ palpable bilaterally. She has 1+ edema of the lower anterior shins and leroy-malleolar area. She has minimal DJD changes of her hands. Neurologic: Mental status: She is talkative and a good historian. Cranial nerves: Smile is symmetric. Forehead wrinkles bilaterally. Tongue protrudes midline. EOMI. Motor: There is no pronator drift. Cerebellar: Finger to nose is intact bilaterally. Skin: Warm and dry Internal Med - H&P Results - Labs CBC & Chem 7: 10/15/18 05:50 10/15/18 05:50 Labs: Short CBC 10/14/18 10/15/18 Range/Units 15:12 05:50 WBC 3.3 L 3.6 L (4.3-11.1) K/mcL Hgb 5.5 L* 7.0 L D (11.5-15.4) g/dL Hct 20.1 L 24.4 L (35.3-44.9) % Plt Count 195 166 (140-400) K/mcL Neutrophils # 2.6 2.8 (1.6-8.9) K/mcL BMP 10/14/18 10/15/18 15:12 05:50 Sodium 127 L 132 L Potassium 4.2 3.9 Chloride 94 L 98 Carbon Dioxide 25 26 BUN 26 H 24 H Creatinine 1.08 0.85 Glucose 700 H* 420 H Calcium 7.6 L 7.4 L Liver Function 10/14/18 Range/Units 15:12 Total Bilirubin 0.9 (0.3-1.0) mg/dL Direct Bilirubin 0.2 (0.0-0.2) mg/dL AST 15 (13-39) Units/L ALT 13 (7-52) Units/L Alkaline Phosphatase 76 (34-104) Units/L Albumin 2.8 L (3.5-5.7) g/dL
[2018-10-15] MEDS: *HR* SitaGLIPtin 25 MG TABLET PO SCH (14:31)
[2018-10-15] MEDS: *HR* Metformin 500 MG TABLET PO SCH (17:31)
[2018-10-15 20:15] LABS: Bilirubin,Urine Negative (Negative); Blood,Urine Moderate (Negative); Clarity,Urine Clear (Clear); Color,Urine Yellow (Yellow); Glucose,Urine (UA) >=1000 mg/dL (Normal); Ketones,Urine Negative (Negative); Leukocyte Esterase,Urine Negative (Negative); Nitrite,Urine Negative (Negative); Protein,Urine 100 mg/dL (Neg-Trace); Urobilinogen,Urine Normal (Normal)
[2018-10-15 20:22] LABS: Bacteria,Urine Moderate per hpf (None-Few); Granular Casts,Urine Few per lpf (None Seen); Mucus,Urine Moderate (Few); Red Blood Cell Casts,Urine Few per lpf (None Seen); Squamous Epithelial Cell,Urine Many per lpf (None-Few)
[2018-10-15 20:51] LABS: Complement C3 120 mg/dL (87-200)
[2018-10-15 20:53] LABS: % Iron Saturation 8 % (15-50); Iron 30 mcg/dL (50-170); Transferrin 262 mg/dL (203-362)
[2018-10-15 21:14] LABS: Ferritin 24 ng/mL (10-120)
[2018-10-15 21:17] LABS: Folate 9.7 ng/mL (3.0-16.0)
[2018-10-15 21:59] LABS: Hepatitis B Surface Antigen Nonreactive (Nonreactive)
[2018-10-15 22:28] LABS: Hepatitis B Core IgM Nonreactive (Nonreactive); Hepatitis C Virus Antibody Nonreactive (Nonreactive)
[2018-10-15 22:29] LABS: Hepatitis A Antibody IgM Nonreactive (Nonreactive)
[2018-10-16 05:42] LABS: Basophils % 0.2 %; Eosinophils # 0.1 K/mcL (0.0-0.6); Eosinophils % 1.3 %; Hematocrit 24.8 % (35.3-44.9); Hemoglobin 7.1 g/dL (11.5-15.4); Immature Granulocytes % 0.4 % (0-4); Lymphocytes # 0.6 K/mcL (0.6-4.6); Lymphocytes % 11.9 %; Mean Corpuscular HGB Conc 28.6 g/dL (31.6-35.5); Mean Corpuscular Hemoglobin 23.4 pg (28.0-33.3); Mean Corpuscular Volume 81.8 fL (83.0-100.0); Mean Platelet Volume 11.8 fL (9.4-12.4); Monocytes # 0.2 K/mcL (0.0-1.3); Neutrophils # 3.8 K/mcL (1.6-8.9); Platelet Count 177 K/mcL (140-400); Red Blood Count 3.03 M/mcL (3.82-4.97); Segmented Neutrophils % 81.2 %
[2018-10-16 05:59] LABS: BUN/Creatinine Ratio 22 (6-26); Blood Urea Nitrogen 19 mg/dL (8-23); Calcium 7.8 mg/dL (8.6-10.3); Carbon Dioxide 24 mEq/L (23-29); Chloride 101 mEq/L (98-107); Glucose 310 mg/dL (70-105); Osmolality,Calculated 290 (280-300); Sodium 133 mEq/L (136-145); eGFR For Non-African Americans > 60 (> 60)
[2018-10-16 06:18] LABS: Anisocytosis 1+ (Not Present); Hypochromasia Present (Not Present); Platelet Estimate Normal (Normal); Polychromasia 1+ (Not Present)
[2018-10-16 06:19] LABS: Toxic Granulation Present (Not Present)
[2018-10-16] MEDS: *HR* SitaGLIPtin 25 MG TABLET PO SCH (09:03)
[2018-10-16] MEDS: *HR* Metformin 500 MG TABLET PO SCH ×2 (09:04→15:55)
[2018-10-16] MEDS: Insulin LISPRO 300 UNITS/3 ML VIAL SQ SCH ×4 (09:15→19:37)
[2018-10-16] MEDS: Ondansetron 4 MG/2 ML VIAL IVP PRN ×2 (10:04→17:29)
[2018-10-16 10:30] LABS: Estimated Average Glucose 283 mg/dl; Hemoglobin A1C 11.5 %
--- NOTE | 2018-10-16 15:06 | Internal Med Progress Note ---
Date of Encounter: 10/16/18 Time of Encounter: 14:50 - Assessment and plan (1) Rash Current Visit: Yes Status: Acute Assessment and plan: October 16. Lab results show ESR 78, CRP 53, RF < 10, normal C3 and C4, and nonreactive hepatitis B and C screen. UA showed 3-5 RBCs and few RBC casts. STEFANIE and ANCA are pending. Cryoglobulins could not be collected. (2) Anemia Current Visit: Yes Status: Acute Assessment and plan: October 16. Anemia testing showed iron 30, transferrin saturation 8%, transferrin 262, ferritin 24, B12 910, and folate 9.7. She will be given IV iron dextran. Qualifiers: Anemia type: unspecified type Qualified Code(s): D64.9 - Anemia, unspecified (3) Azotemia Current Visit: No Status: Acute Assessment and plan: October 16. BUN and creatinine improved to 19 and 0.7 respectively with estimated GFR greater than 60. (4) Hyperuricemia Current Visit: No Status: Acute Assessment and plan: October 16. Uric acid level acceptable at 5.7. (5) DM type 2 (diabetes mellitus, type 2) Current Visit: No Status: Chronic Assessment and plan: October 16. Hemoglobin A1c elevated 11.5%. Continue Glucophage and Januvia. Start Levemir and continue Accu-Cheks with SSI. 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 TSH slightly elevated at 7.038. Increase Synthroid to 50 g daily. Qualifiers: Hypothyroidism type: unspecified Qualified Code(s): E03.9 - Hypothyroidism, unspecified (7) Pneumonia Current Visit: Yes Status: Acute Assessment and plan: October 16. Chest CT showed patchy multifocal bilateral airspace disease more in the right lung than left. She will receive IV Rocephin and Zithromax with lactobacillus. Qualifiers: Pneumonia type: due to unspecified organism Laterality: bilateral Lung location: unspecified part of lung Qualified Code(s): J18.9 - Pneumonia, unspecified organism - Subjective Interval history: May 20. She has no new complaints. - Constitutional Vitals: Temp Pulse Resp BP Pulse Ox 98.1 F 102 18 138/57 97 10/16/18 12:03 10/16/18 12:03 10/16/18 12:03 10/16/18 12:03 10/16/18 12:03 Exam: She is resting comfortably in bed and appears in no acute distress. Her affect is bright and cheerful. There is no significant change in the rash on her legs. I reviewed her medications and lab results. Internal Medicine: Result - Labs CBC & Chem 7: 10/16/18 04:20 10/16/18 04:20 Labs: Short CBC 10/16/18 Range/Units 04:20 WBC 4.6 (4.3-11.1) K/mcL Hgb 7.1 L (11.5-15.4) g/dL Hct 24.8 L (35.3-44.9) % Plt Count 177 (140-400) K/mcL Neutrophils # 3.8 (1.6-8.9) K/mcL BMP 10/16/18 04:20 Sodium 133 L Potassium 4.0 Chloride 101 Carbon Dioxide 24 BUN 19 Creatinine 0.87 Glucose 310 H Calcium 7.8 L Urine 10/15/18 Range/Units 20:09 Urine Color Yellow (Yellow) Urine Clarity Clear (Clear) Urine pH 5.0 (5.0-8.0) pH Units Ur Specific [place] 1.020 (1.010-1.025) Urine Protein 100 H (Neg-Trace) mg/dL Urine Glucose (UA) >=1000 H (Normal) mg/dL - ABG Interpretation ABG results: PT/INR, D-dimer PT 16.8 Seconds (9.4-12.1) H 10/14/18 15:12 - Impressions Impressions Abdomen/Pelvis CT 10/15/18 12:43 IMPRESSION: CHEST: Patchy multifocal airspace disease, mostly within the right lung, most compatible with pneumonia. Follow-up to resolution is recommended. Mild compression fracture of T11 of indeterminate age but new since August 2016. ABDOMEN AND PELVIS: Cirrhotic morphology of the liver with evidence portal venous hypertension including splenomegaly, venous collaterals as well as mesenteric edema and small amount of abdominopelvic ascites. D/ / Janet Shipman Cha, MD / Janet Shipman Cha, MD Interpreting Provider: Janet Shipman Cha, MD Consult Discharge Plan - Plan
[2018-10-16] MEDS ORDERED: Azithromycin 500 MG in D5% in Water 250 ML IVPB SCH (16:00)
[2018-10-16] MEDS ORDERED: cefTRIAXone 1,000 MG in Water for inj. (sterile) 20 ML 10 ML IVP SCH (16:00)
[2018-10-16] MEDS ORDERED: IRON DEXTRAN COMPLEX IVPB ONE (16:25)
[2018-10-16] MEDS ORDERED: SODIUM CHLORIDE 0.9% IVPB ONE (16:25)
[2018-10-16] MEDS: Lactobacillus 1 EACH CAP.SPRINK PO SCH (19:36)
[2018-10-16] MEDS: Insulin DETEMIR 100 UNIT/ML X5UNITS SQ SCH (19:40)
[2018-10-17 06:30] VITALS: BP 106/34
[2018-10-17] MEDS: Insulin DETEMIR 100 UNIT/ML X5UNITS SQ SCH (07:52)
[2018-10-17] MEDS: Insulin LISPRO 300 UNITS/3 ML VIAL SQ SCH ×2 (07:52→11:46)
[2018-10-17] MEDS: Lactobacillus 1 EACH CAP.SPRINK PO SCH (07:53)
[2018-10-17] MEDS: *HR* SitaGLIPtin 25 MG TABLET PO SCH (07:53)
[2018-10-17] MEDS: *HR* Metformin 500 MG TABLET PO SCH (08:00)
[2018-10-17 10:07] LABS: Basophils % 0.3 %; Eosinophils # 0.1 K/mcL (0.0-0.6); Eosinophils % 2.4 %; Hematocrit 25.5 % (35.3-44.9); Hemoglobin 7.2 g/dL (11.5-15.4); Immature Granulocytes % 0.6 % (0-4); Lymphocytes # 0.5 K/mcL (0.6-4.6); Lymphocytes % 14.3 %; Mean Corpuscular HGB Conc 28.2 g/dL (31.6-35.5); Mean Corpuscular Hemoglobin 23.9 pg (28.0-33.3); Mean Corpuscular Volume 84.7 fL (83.0-100.0); Mean Platelet Volume 11.6 fL (9.4-12.4); Monocytes # 0.2 K/mcL (0.0-1.3); Monocytes % 6.1 %; Neutrophils # 2.5 K/mcL (1.6-8.9); Platelet Count 178 K/mcL (140-400); Red Blood Count 3.01 M/mcL (3.82-4.97); Red Cell Distribution Width 17.7 % (11.5-14.5); Segmented Neutrophils % 76.3 %
[2018-10-17 11:36] LABS: Anisocytosis 1+ (Not Present); Hypochromasia Present (Not Present)
--- NOTE | 2018-10-17 12:13 | Discharge Summary ---
Orders not resulted at time of discharge: Pending orders 10/15/18 12:47 MR foot LT wo con [MR] Routine 10/15/18 13:25 STEFANIE IgG LUCIE rflx IFA Routine MPO/PR3 (ANCA) Antibodies Routine 10/15/18 20:09 Culture,Urine [RM] Routine Date of Encounter: 10/17/18 Time of Encounter: 12:00 - Discharge Diagnosis (1) Rash Priority: Primary Status: Acute (2) Pneumonia Priority: Secondary Status: Acute Qualifiers: Pneumonia type: due to unspecified organism Laterality: bilateral Lung location: unspecified part of lung Qualified Code(s): J18.9 - Pneumonia, unspecified organism (3) Anemia Priority: Secondary Status: Acute Qualifiers: Anemia type: unspecified type Qualified Code(s): D64.9 - Anemia, unspecified (4) Azotemia Priority: Secondary Status: Resolved (5) Hyperuricemia Priority: Secondary Status: Resolved (6) DM type 2 (diabetes mellitus, type 2) Priority: Secondary Status: Chronic Qualifiers: 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 Thayer is a 72 year old female who came to emergency room after noting a "rash" develop on her legs approximately 10/11/2018. She denies involvement elsewhere on her body. When the rash seemed to be progressing she came to emergency room and was found to have significant anemia with hemoglobin 5.5. She was admitted to [facility] for IV blood transfusions and further workup. Initial orders were written by the emergency room physician. I saw her on October 15 and performed a history and physical. She was given 2 units packed red blood cells. Anemia testing showed iron 30, transferrin saturation 8%, transferrin 264, ferritin 24, B12 910, and folate 9.7. She reported she was taking oral ferrous sulfate at home prior to admission. I explained to her it did not appear she was absorbing it adequately. She received iron dextran infusion. Hemoglobin was stable at 7.2 on day of transfer. Workup for vasculitis showed hepatitis A,B, and C panel nonreactive, C3 and C4 normal, and rheumatoid factor < 10. STEFANIE and ANCA results are pending at time of transfer. Urine testing showed slight proteinuria and some RBC casts. Chest CT of abdomen and pelvis was done to further evaluate her 20 pound weight loss and history of cirrhosis with possible ascites. Chest CT showed patchy multifocal airspace disease mostly in the right lung compatible with pneumonia. There was cirrhotic morphology of the liver with small amount of ascites present. There was evidence of portal venous hypertension with splenomegaly and venous collaterals with mesenteric edema. She maintained afebrile during her hospital stay despite evidence of pneumonia on CT scan. She was started on Rocephin and Zithromax with lactobacillus. There was no significant change in the rash on her legs during her hospital stay. On October 17 I told her results of lab reports to date and explained I felt she needed additional evaluation. Since she was from [facility] she agreed to be transferred to [facility] in [place] for ongoing care needs. - Time Spent with Patient Total time spent providing and/or coordinating discharge services: - Discharge Medications Prescriptions: No Action metFORMIN [Glucophage] 1,000 mg PO BIDWM Pravastatin Sodium [Pravachol] 20 mg PO QDPC HYDROcodone/Acet 5/325 mg [[place] 5-325 mg] 1 tab PO Q6H PRN PRN Reason: Pain Polyethylene Glycol 3350 17 gm PO QDPC Omeprazole [PriLOSEC] 40 mg PO DAILY SitaGLIPtin [Januvia] 100 mg PO DAILY Levothyroxine [Synthroid] 25 mcg PO 0630 glipiZIDE [Glucotrol] 10 mg PO BIDWM Gabapentin [Neurontin] 400 mg PO TID hydrOXYzine HCl [Hydroxyzine HCl] 10 mg PO BID Insulin NPH Hum/Reg Insulin Hm [Novolin 70-30 100 Unit/ml Vial] 0 unit SQ QDPC Allopurinol [Zyloprim 100 MG] 200 mg PO DAILY #60 tablet Lactobacillus [Culturelle] 1 each PO BID #10 cap.sprink levoFLOXacin [Levaquin] 500 mg PO DAILY #5 tablet Ascorbic Acid [Vitamin C] 500 mg PO DAILY #30 tablet.er Spironolactone [Aldactone] 25 mg PO DAILY Furosemide [Lasix] 40 mg PO DAILY Aspirin [Adult Aspirin] 81 mg PO DAILY Ferrous Sulfate 65 mg PO DAILY Home Medications: metFORMIN [Glucophage] 1,000 mg PO BIDWM 09/18/16 [History] Gabapentin [Neurontin] 400 mg PO TID 09/19/16 [History] HYDROcodone/Acet 5/325 mg [[place] 5-325 mg] 1 tab PO Q6H PRN 09/19/16 [History] Insulin NPH Hum/Reg Insulin Hm [Novolin 70-30 100 Unit/ml Vial] 0 unit SQ QDPC 09/19/16 [History] Levothyroxine [Synthroid] 25 mcg PO 0630 09/19/16 [History] Omeprazole [PriLOSEC] 40 mg PO DAILY 09/19/16 [History] Polyethylene Glycol 3350 17 gm PO QDPC 09/19/16 [History] Pravastatin Sodium [Pravachol] 20 mg PO QDPC 09/19/16 [History] SitaGLIPtin [Januvia] 100 mg PO DAILY 09/19/16 [History] glipiZIDE [Glucotrol] 10 mg PO BIDWM 09/19/16 [History] hydrOXYzine HCl [Hydroxyzine HCl] 10 mg PO BID 09/19/16 [History] Allopurinol [Zyloprim 100 MG] 200 mg PO DAILY #60 tablet 09/21/16 [Rx] Ascorbic Acid [Vitamin C] 500 mg PO DAILY #30 tablet.er 09/21/16 [Rx] Lactobacillus [Culturelle] 1 each PO BID #10 cap.sprink 09/21/16 [Rx] levoFLOXacin [Levaquin] 500 mg PO DAILY #5 tablet 09/21/16 [Rx] Aspirin [Adult Aspirin] 81 mg PO DAILY 10/14/18 [History] Ferrous Sulfate 65 mg PO DAILY 10/14/18 [History] Furosemide [Lasix] 40 mg PO DAILY 10/14/18 [History] Spironolactone [Aldactone] 25 mg PO DAILY 10/14/18 [History] Allergies/Adverse Reactions: Allergy/AdvReac Type Severity Reaction Status Date / Time acetaminophen [From Percocet] AdvReac Agitated Verified 09/18/16 21:05 oxycodone [From Percocet] AdvReac Agitated Verified 09/18/16 21:05 Date of admission: 10/15/18 12:49 Primary care physician: Jose Elias Chatterjee - Constitutional Vitals: Temp Pulse Resp BP Pulse Ox 97.7 F 96 14 106/34 93 10/17/18 06:27 10/17/18 06:27 10/17/18 06:27 10/17/18 06:27 10/17/18 06:27 - Patient Status Disposition: Transfer Other Condition: Fair - Discharge Instructions Forms: ED Satisfaction Letter
[2018-10-17] MEDS: Ondansetron 4 MG/2 ML VIAL IVP PRN (16:06)
[2018-10-18 14:35] LABS: ANA IgG by ELISA NONE DETECTED (None Detected)
[2018-10-18 14:42] LABS: Myeloperoxidase Ab 0 AU/mL (0-19); Serine Protease-3 Antibody 4 AU/mL (0-19)
== END 2018-10-17 16:48 | disposition other institution (70) | DRG 606 ==
LOC: INPPIK 14:19 → EMEROOPIK 14:19 → INPPIK 17:45
PROVIDERS: ADMIT Internal Medicine; ATTEND Internal Medicine